=== PATIENT | male | born 1980 | race Caucasian/White ===

== ENCOUNTER → 2021-12-04 09:29 | Outpatient (CLI) | payer BC, SELFPAY ==
--- NOTE | ~2021-12-04 | XR_ITS ---
EXAMINATION: XR wrist RT w scaphoid DATE: 12/04/2021 09:58 INDICATION: Right wrist pain, initial encounter TECHNIQUE: Posteroanterior, ulnar deviation, oblique, and lateral views of the right wrist were obtai say. COMPARISON: None available FINDINGS: There is an acute, traumatic, closed fracture of the radial styloid which extends to the di stal articular surface. No additional fracture is identified. Bone alignment is normal. There is wris t soft tissue swelling. IMPRESSION: 1. Acute intra-articular fracture of the radial styloid. Reviewed, dictated and finalized at location B.
--- NOTE | ~2021-12-04 | XR_ITS ---
EXAMINATION: XR hand RT min 3V INDICATION: Right hand pain TECHNIQUE: Three views of the right hand are obtained. COMPARISON: None available FINDINGS: There is an acute intra-articular fracture of the radial styloid. No additional fracture is identified. The joint spaces are normal. The hand soft tissues are unremarkable. IMPRESSION: 1. No acute fracture of the hand. 2. Radial styloid fracture. Reviewed, dictated and finalized at location B.
== END ==
PROVIDERS: PCP Family Medicine; Visit Provider Physician Assistant
DX: S52.511A Displaced fracture of right radial styloid process, initial encounter for closed fracture (principal)
CPT/HCPCS: 73110; 73130